=== PATIENT | male | born 1980 | race Caucasian/White ===

== ENCOUNTER 2018-01-17 14:41 | Emergency (ER) | payer MEDICARE ==
[~2018-01-17] VITALS: Ht 177.8 cm; Wt 70.3 kg
[2018-01-17 14:44] VITALS: BP 142/75
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
--- NOTE | 2018-01-17 14:51 | NUR ---
BS: 298 ER NOTIFIED.
--- NOTE | 2018-01-17 15:58 | NUR ---
PT. SLEEPING IN BED, RR EVEN AND UNLABORED. CHEST RISE SYMMETRICAL NOTED. VSS. WILL CONTINUE TO MONITOR.
--- NOTE | 2018-01-17 16:15 | NUR ---
PT. UNABLE TO PROVIDE URINE AT THIS TIME. PROVIDED URINAL AND A CUP OF WATER. ER MD MACIAS AWARE.
[2018-01-17 16:18] LABS: BASOPHILS % (AUTO) 0.8 % (0.0-2.0); EOSINOPHILS # (AUTO) 0.2 K/uL (0-0.4); EOSINOPHILS % (AUTO) 4.5 % (0.0-4.0); HEMATOCRIT 43.8 % (36-52); HEMOGLOBIN 14.6 g/dL (12.0-18.0); LYMPHOCYTES % (AUTO) 38.3 % (20.5-51.1); MEAN CORPUSCULAR HEMOGLOBIN 31 pg (27-31); MEAN CORPUSCULAR HGB CONC 33 g/dL (33-37); MONOCYTES # (AUTO) 0.2 K/uL (0.8-1.0); MONOCYTES % (AUTO) 4.4 % (1.7-9.3); NEUTROPHILS # (AUTO) 2.7 K/uL (1.8-7.7); PLATELET COUNT (AUTO) 454 K/uL (140-450); RED BLOOD CELL COUNT(AUTO) 4.76 MIL/uL (4.20-6.10); WHITE BLOOD COUNT (AUTO) 5.2 K/uL (4.8-10.8)
--- NOTE | 2018-01-17 16:26 | NUR ---
PT FOUND TO BE CURSING IN ROOM BECOMING AGITATED. EDMD AWARE.
[2018-01-17] MEDS ORDERED: LORazepam 2 MG/ML VIAL ONE (16:29)
[2018-01-17] MEDS ORDERED: diphenhydrAMINE 50 MG/ML VIAL IVP ONE (16:30)
[2018-01-17] MEDS ORDERED: diphenhydrAMINE 50 MG/ML VIAL ONE (16:30)
[2018-01-17] MEDS ORDERED: HALOPERIDOL IM 5 MG/ML VIAL ONE (16:30)
[2018-01-17] MEDS ORDERED: LORazepam 2 MG/ML VIAL IVP ONE (16:30)
[2018-01-17] MEDS ORDERED: HALOPERIDOL IM 5 MG/ML VIAL IM ONE (16:40)
[2018-01-17 17:04] LABS: ALBUMIN 3.3 g/dL (3.4-5.0); ANION GAP 14.2 (8-16); ASPARTATE AMINOTRANSFERASE 35 U/L (15-37); CARBON DIOXIDE 25.2 mmol/L (21-32); CHLORIDE 101 mmol/L (98-107); CREATININE 0.9 mg/dL (0.7-1.3); GFR ARICAN-AMERICAN 123 mL/min (>90); GLUCOSE 68 mg/dL (74-106); POTASSIUM 3.4 mmol/L (3.5-5.1); SALICYLATE 4.8 mg/dL (2.8-20.0); SODIUM SERUM 137 mmol/L (136-145); TOTAL BILIRUBIN 0.8 mg/dL (0.0-1.0); UREA NITROGEN, BLOOD 8 mg/dL (7-18)
[2018-01-17 17:27] LABS: APPEARANCE,URINE CLEAR (CLEAR); BILIRUBIN,URINE NEGATIVE (NEGATIVE); BLOOD, URINE NEGATIVE (NEGATIVE); COLOR,URINE YELLOW (YELLOW); LEUKOCYTE ESTERASE ,URINE NEGATIVE (NEGATIVE); NITRITE, URINE NEGATIVE (NEGATIVE); PH,URINE 5.5 (5.0-9.0); UGLUCOSE NEGATIVE (NEGATIVE)
--- NOTE | 2018-01-17 17:30 | NUR ---
PT. RESTING IN BED, RR EVEN AND UNLABORED. PT. IS SLEEPING COMFORTABLY IN BED. BED IN LOWEST POSITION. WILL CONTINUE TO MONITOR.
[2018-01-17 18:05] LABS: BARBITURATE, URINE NEG. ng/ml (NEG <=200); BENZODIAZEPINE, URINE NEG. ng/mL (NEG <=200); CANNABINOID, URINE NEG. ng/mL (NEG <=50); COCAINE, URINE NEG. ng/mL (NEG <=300); OPIATE, URINE NEG. ng/mL (NEG <=2000); PHENCYCLIDINE SCREEN,URINE NEG. ng/mL (NEG <=25)
--- NOTE | 2018-01-17 18:45 | NUR ---
PT. IS SLEEPING COMFORTABLY IN BED, RR EVEN AND UNLABORED. BED IN LOWEST POSITION. WILL CONTINUE TO MONITOR .
--- NOTE | 2018-01-17 19:15 | NUR ---
GOT REPORT MICHI GAMBLE RN. PT GCS 14, NON VERBAL, RESPIRATIONS EVEN AND UNLABORED, BL LUNG CLEAR. SKIN WARM/PINK/DRY, CAP REFILLS LESS THAN 3 SESC. VS, BP 80/50, P 94. DR. MOSQUEDA MADE AWARE, NEW ORDER TO GIVE NSS 2000 ML IV BOLUS. WILL CONTINUE TO MONITOR
--- NOTE | 2018-01-17 19:15 | NUR ---
Pt report given to LINDSEY CUETO . Transfer of care at this time.
[2018-01-17] MEDS ORDERED: NACL 0.9% 2,000 ML IV ONE (19:25)
--- NOTE | 2018-01-17 20:15 | NUR ---
PT AAO X4, GCS 15, RESPIRATIONS EVEN AND UNLABORED. AMBULATORY WITH STEDAY GAIT. VSS. NO ACUTE DISTRESS AT THIS TIME.
[2018-01-17 20:32] VITALS: BP 106/72
--- NOTE | 2018-01-17 20:32 | NUR ---
Patient discharged with v/s stable. Written and verbal after care instructions given and explained. Patient verbalized understanding. Ambulatory with steady gait. All questions addressed prior to discharge. Advised to follow up with PMD. HOMELESS PACKET GIVEN, PACKET SIGNED.
== END 2018-01-17 20:32 | disposition home or self-care (01) ==
LOC: MED 14:41
DX: F10.229 Alcohol dependence with intoxication, unspecified (principal); F15.10 Other stimulant abuse, uncomplicated; Y90.6 Blood alcohol level of 120-199 mg/100 ml
CPT/HCPCS: 36415; 71045; 80053; 80305; 81003; 82550; 82553; 82948; 84484; 85025; 96372; 96374; 96375; 99285; G0480; G0482; J1200; J1630; J2060; J7030; Q0092

== ENCOUNTER 2018-01-18 02:45 | Emergency (ER) | payer MEDICARE ==
[~2018-01-18] VITALS: Ht 170.2 cm; Wt 81.6 kg
[2018-01-18 02:50] VITALS: BP 104/72
--- NOTE | 2018-01-18 03:00 | NUR ---
PT AMBULATED TO ER OF
--- NOTE | 2018-01-18 03:11 | NUR ---
PT PRESENTS TO ED WITH C/O PAINFUL URINATION X 2 DAYS. PT WAS SEEN BY ER MD FOR ETOH AND METH USE YESTERDAY. D/C WITH VSS. AAO X4, GCS 15, RESPIRATIONS EVEN AND UNLSBORED, BL LUNG CLEAR. SKIN WARM/PINK/DRY. ABDOMEN SOFT, NON DISTENDED, ACTIVE BOWEL SOUND X4. C/O PAINFUL URINATION 8/10, VSS. ER MD MADE AWARE OF PT STATUS.
[2018-01-18 03:34] VITALS: BP 110/79
--- NOTE | 2018-01-18 03:34 | NUR ---
Patient discharged with v/s stable. Written and verbal after care instructions given and explained. Patient alert, oriented and verbalized understanding of instructions. Ambulatory with steady gait. All questions addressed prior to discharge. ID band removed. Patient advised to follow up with PMD. Rx of PYRIDIUM 100 MG given. Patient educated on indication of medication including possible reaction and side effects. Opportunity to ask questions provided and answered.
== END 2018-01-18 03:34 | disposition home or self-care (01) ==
LOC: MED 02:45
DX: R30.0 Dysuria (principal)
CPT/HCPCS: 36415; 81002; 99283

== ENCOUNTER 2020-12-01 01:39 | Emergency (ER) | payer MEDICAID, MEDICARE ==
[~2020-12-01] VITALS: Ht 177.8 cm; Wt 74.8 kg
[2020-12-01 01:43] VITALS: BP 111/65
--- NOTE | 2020-12-01 03:00 | NUR ---
40 Y/O MALE BIBA FOR SOB FOR THE PAST HOUR. PER EMS, "PT. SAYS HE WASN'T ABLE TO BREATHE 'INWARDS'. NO PAIN AT THIS TIME. NO RESPIRATORY DISTRESS AT THIS TIME. A/OX4; GCS 15; BREATHING SYMMETRICALLY. 02 SATS AT 97% ON RA; 20 RR. LUNG SOUNDS ARE CLEAR ALL THROUGHOUT. EQUAL CHEST RISE AND FALL. AIRWAY PATENT AND CLEAR. NONLABORED BREATHING NOTED. VSS. A&OX4. STEADY GAIT NOTED. SKIN INTACT AND WNL. PMH:DENIES NKDA.
[2020-12-01] MEDS: OLANZapine 5 MG ODT SL ONE ×2 (03:20→04:27)
[2020-12-01 04:58] LABS: ALBUMIN 3.6 g/dL (3.4-5.0); ASPARTATE AMINOTRANSFERASE 28 U/L (15-37); CARBON DIOXIDE 30.9 mmol/L (21-32); CHLORIDE 102 mmol/L (98-107); CREATININE 0.7 mg/dL (0.6-1.3); GFR ARICAN-AMERICAN 162 mL/min (>90); GLUCOSE 88 mg/dL (74-106); POTASSIUM 3.9 mmol/L (3.5-5.1); SALICYLATE 3.2 mg/dL (2.8-20.0); SODIUM SERUM 137 mmol/L (136-145); TOTAL BILIRUBIN 0.6 mg/dL (0.0-1.0); UREA NITROGEN, BLOOD 11 mg/dL (7-18)
[2020-12-01 05:00] LABS: ACETAMINOPHEN < 0.5 ug/ml (10-30)
[2020-12-01 05:21] LABS: HEMATOCRIT 40.4 % (36-52); LYMPHOCYTES % (AUTO) 27.5 % (20.5-51.1); MEAN CORPUSCULAR HEMOGLOBIN 31 pg (27-31); MEAN CORPUSCULAR HGB CONC 35 g/dL (33-37); NEUTROPHILS % (AUTO) 64.7 % (42.2-75.2); PLATELET COUNT (AUTO) 85 K/uL (140-450); RED BLOOD CELL COUNT(AUTO) 4.54 MIL/uL (4.20-6.10); RED CELL DISTRIBUTION WIDTH 13.5 % (11.6-13.7); WHITE BLOOD COUNT (AUTO) 6.3 K/uL (4.8-10.8)
[2020-12-01 05:22] LABS: BASOPHILS % (AUTO) 0.7 % (0.0-2.0); EOSINOPHILS # (AUTO) 0.2 K/uL (0-0.4); EOSINOPHILS % (AUTO) 3.1 % (0.0-4.0); LYMPHOCYTES # (AUTO) 1.7 K/uL (2.0-11.5); MONOCYTES # (AUTO) 0.4 K/uL (0.8-1.0); NEUTROPHILS # (AUTO) 3.9 K/uL (1.8-7.7)
--- NOTE | 2020-12-01 06:30 | NUR ---
PT IS SLEEPING WITH EQUAL CHEST RISE AND FALL. NO DISTRESS NOTED. VSS.
--- NOTE | 2020-12-01 07:14 | NUR ---
Pt report given to LINDSEY DOUGHERTY. Transfer of care at this time.
--- NOTE | 2020-12-01 07:15 | NUR ---
Report received from LINDSEY Jones; care assumed.
--- NOTE | 2020-12-01 07:37 | NUR ---
ERMD at the bedside evaluating patient.
[2020-12-01 07:46] VITALS: BP 92/61
--- NOTE | 2020-12-01 07:48 | NUR ---
Patient discharged with v/s stable. Written and verbal after care instructions given and explained. Patient verbalized understanding. Ambulatory with steady gait. All questions addressed prior to discharge. Advised to follow up with PMD.
== END 2020-12-01 07:48 | disposition home or self-care (01) ==
LOC: MED 01:39
DX: F29 Unspecified psychosis not due to a substance or known physiological condition (principal)
CPT/HCPCS: 36415; 80053; 85025; 99283; G0480; G0482

== ENCOUNTER 2024-02-15 23:02 | Emergency (ER) | payer MEDICAID ==
[~2024-02-15] VITALS: Ht 175.3 cm; Wt 86.2 kg
[2024-02-15 23:03] VITALS: BP 122/72; PULSE 107; RESP 17; TEMP 97.8; O2SAT 95
[2024-02-16 00:51] VITALS: BP 124/85; PULSE 92; RESP 16; TEMP 97.8; O2SAT 98
== END 2024-02-16 01:08 | disposition home or self-care (01) ==
LOC: MED 23:02
DX: F10.129 Alcohol abuse with intoxication, unspecified (principal); Y90.9 Presence of alcohol in blood, level not specified
CPT/HCPCS: 99283